=== PATIENT | male | born 1960 | race African-American/Black ===

== ENCOUNTER 2021-05-02 15:50 | Inpatient (IN) | payer OTHER ==
[~2021-05-02] VITALS: Ht 175.3 cm; Wt 70.5 kg
[2021-05-02 16:39] LABS: CHLORIDE 106 mEq/L (98-107)
[2021-05-02 16:40] LABS: BASOPHILS % 0.7 % (0.0-2.0); EOSINOPHILS % 2.1 % (0.0-5.0); HEMATOCRIT. 44.1 % (42.0-52.0); HEMOGLOBIN. 14.2 g/dL (14.0-18.0); LYMPHOCYTES % 24.6 % (20.0-50.0); MEAN CORPUSCULAR HEMOGLOBIN 32.3 pg (28.0-32.0); MEAN CORPUSCULAR VOLUME 100.1 fL (80.0-94.0); MEAN PLATELET VOLUME 9.1 fl (7.4-10.4); MONOCYTES % 6.3 % (2.0-8.0); NEUTROPHILS % 66.3 % (40.0-76.0); PLATELET 202 x1000/uL (130-400); RED BLOOD CELL COUNT 4.41 mill/uL (4.7-6.1); RED CELL DISTRIBUTION WIDTH 14.8 % (11.6-14.6)
[2021-05-02 17:15] LABS: *AMPHETAMINES SCREEN URINE NEGATIVE (NEGATIVE); *BARBITURATES SCREEN URINE NEGATIVE (NEGATIVE); *COCAINE SCREEN URINE PRESUMTIVE POSITIVE (NEGATIVE); OPIATES URINE SCREEN NEGATIVE (NEGATIVE)
[2021-05-02 17:16] LABS: *BENZODIAZEPINES SCREEN URINE NEGATIVE (NEGATIVE); CANNABINOID URINE SCREEN NEGATIVE (NEGATIVE); METHADONE URINE SCREEN NEGATIVE (NEGATIVE); PHENCYCLIDINE URINE SCREEN PRESUMTIVE POSITIVE (NEGATIVE)
[2021-05-02] MEDS ORDERED: SODIUM CHLORIDE 0.9% 1,000 ML IV ONE ×2 (17:45→18:45)
[2021-05-02 18:17] LABS: CREATINE KINASE 988 IU/L (39-308)
[2021-05-02] MEDS ORDERED: LORAZEPAM 2MG/ML CPJ IV ONE (19:45)
[2021-05-02] MEDS ORDERED: CLONIDINE 0.1MG TABLET PO PRN (20:30)
[2021-05-02] MEDS ORDERED: DIPHENHYDRAMINE 50MG/ML VIAL IV PRN (20:30)
[2021-05-02] MEDS ORDERED: MORPHINE SULFATE 2 MG/ML CPJ (NOT FOR IM USE) IV PRN (20:30)
[2021-05-02] MEDS ORDERED: IPRATROPIUM/ALBUTEROL 0.5-3(2.5)MG/3ML NEB HHN PRN (20:30)
[2021-05-02] MEDS ORDERED: ONDANSETRON HCL 4MG/2ML INJ IV PRN (20:30)
[2021-05-02] MEDS ORDERED: ACETAMINOPHEN 325MG TABLET PO PRN (20:30)
[2021-05-02] MEDS ORDERED: HYDRALAZINE 20MG/ML VIAL IV PRN (20:45)
[2021-05-03 00:52] VITALS: BP 145/115
[2021-05-03 01:00] VITALS: BP 145/115
[2021-05-03] MEDS ORDERED: *PATIENT'S OWN MEDICATION STORAGE XX SCH (02:00)
[2021-05-03 04:00] VITALS: BP 189/113
[2021-05-03] MEDS ORDERED: BETADINE (04:03)
[2021-05-03] MEDS ORDERED: FLUT1DIS3 INH (04:06)
[2021-05-03] MEDS ORDERED: LISI20TA31 MT (04:06)
[2021-05-03] MEDS ORDERED: DIGO125T80 MT (04:06)
[2021-05-03] MEDS ORDERED: SPIR25TA6 MT (04:06)
[2021-05-03] MEDS ORDERED: TIOT18CA3 INH (04:06)
[2021-05-03] MEDS ORDERED: ISOS30TA12 MT (04:06)
[2021-05-03] MEDS ORDERED: FURO40TA5 MT (04:06)
[2021-05-03] MEDS ORDERED: OMEP20CA14 MT (04:06)
[2021-05-03 07:07] LABS: BASOPHILS % 0.8 % (0.0-2.0); EOSINOPHILS % 1.8 % (0.0-5.0); HEMATOCRIT. 46.9 % (42.0-52.0); HEMOGLOBIN. 15.4 g/dL (14.0-18.0); LYMPHOCYTES % 26.7 % (20.0-50.0); MEAN CORPUSCULAR HEMOGLOBIN 32.8 pg (28.0-32.0); MEAN PLATELET VOLUME 9.9 fl (7.4-10.4); MONOCYTES % 7.9 % (2.0-8.0); NEUTROPHILS % 62.8 % (40.0-76.0); PLATELET 211 x1000/uL (130-400); RED BLOOD CELL COUNT 4.69 mill/uL (4.7-6.1); RED CELL DISTRIBUTION WIDTH 14.6 % (11.6-14.6)
[2021-05-03 07:35] LABS: CHLORIDE 109 mEq/L (98-107)
[2021-05-03 08:00] VITALS: BP 142/93
[2021-05-03] MEDS: FUROSEMIDE 40MG TABLET PO SCH (12:00)
[2021-05-03] MEDS: SPIRONOLACTONE 25MG TABLET PO SCH (12:04)
[2021-05-03] MEDS: LISINOPRIL 20MG TABLET PO SCH (12:05)
[2021-05-03 16:00] VITALS: BP 150/88
[2021-05-03] MEDS ORDERED: DIGOXIN 125MCG TABLET PO SCH (18:00)
[2021-05-03] MEDS: ISOSORBIDE MONONITRATE 30MG TABLET SR 24HR PO SCH (18:38)
[2021-05-03 20:00] VITALS: BP 126/82
[2021-05-04] VITALS: BP 120/80
[2021-05-04 04:00] VITALS: BP 120/79
[2021-05-04] MEDS ORDERED: OMEPRAZOLE 20MG CAPSULE EXTENDED RELEASE PO SCH (06:40)
[2021-05-04 08:00] VITALS: BP 140/83
[2021-05-04] MEDS: SPIRONOLACTONE 25MG TABLET PO SCH (09:03)
[2021-05-04] MEDS: FUROSEMIDE 40MG TABLET PO SCH (09:03)
[2021-05-04] MEDS: LISINOPRIL 20MG TABLET PO SCH (09:03)
[2021-05-04] MEDS: ISOSORBIDE MONONITRATE 30MG TABLET SR 24HR PO SCH (09:03)
[2021-05-04 10:55] VITALS: BP 140/83
[2021-05-04 12:28] VITALS: BP 119/74
== END 2021-05-04 15:45 | disposition home or self-care (01) | DRG 199 ==
LOC: ER 15:50 → 7EST 18:28 → ENRESERV 22:50
PROVIDERS: ADMIT Internal Medicine; ATTEND Internal Medicine
DX: I16.0 Hypertensive urgency (principal); N17.0 Acute kidney failure with tubular necrosis; E86.0 Dehydration; J44.9 Chronic obstructive pulmonary disease, unspecified; I10 Essential (primary) hypertension; R10.9 Unspecified abdominal pain
CPT/HCPCS: 36415; 80053; 80305; 80320; 82550; 82962; 84443; 85025; 93005; 93970; 99285; J0360; J2060; A4315; G0480